=== PATIENT | male | born 1975 | race American Indian/Alaskan Native ===

== ENCOUNTER 2021-10-23 13:20 | Emergency (ER) | payer SELFPAY ==
[2021-10-23 13:25] VITALS: BP 149/95
--- NOTE | 2021-10-23 15:06 | Emergency Department Report ---
Minor Respiratory - HPI Chief Complaint: Headache Stated Complaint: COVID SYMPTOMS Duration: 3 Days Pain Location: Facial, Throat, Nose Severity: moderate Minor Respiratory: Yes Sore Throat (denies any sore throat at present ), Yes Able to Tolerate Fluids, Yes Cough (municex taking last night with relief ), Yes Sick Contacts, Yes Chest Pain, Yes Fever (Tylenol taken last night fever 99.9 ), No Rhinorrhea, No Hemoptysis, No Shortness of Breath Other History: 46-year-old male complaint of headache ,body ache, sore throat ,headache since Saturday. Patient is Covid vaccinated with Moderma x 2 shot. Patient states taking Mucinex and Tylenol last night with relief for fever and cough. Patient is here today in the ER for a Covid and flu test. Patient states that symptom has improved and is concerned about returning to work. ED Review of Systems ROS: Stated complaint: COVID SYMPTOMS Other details as noted in HPI Comment: All other systems reviewed and negative Constitutional: fever ENT: throat pain, congestion Respiratory: cough. denies: shortness of breath, SOB at rest Cardiovascular: denies: chest pain, palpitations Endocrine: no symptoms reported Minor Respiratory Exam - Exam General: Vital signs noted. No distress. Alert and acting appropriately. HEENT: Yes Pharyngeal Erythema, No Pharyngeal Exudates, No Moist Mucous Membranes, No Rhinorrhea, No Conjuctival Injection, No Frontal Tenderness, No Maxillary Tenderness Ear: Neither TM Bulge, Neither TM Erythema, Neither EAC Pain, Neither EAC Discharge Neck: No Adenopathy, No Supple Lungs: No Good Air Exchange, No Wheezes, No Ronchi, No Stridor, No Cough, No Labored Respirations, No Retractions, No Use of Accessory Muscles, No Other Abnormal Lung Sounds Heart: No Regular, No Murmur Abdomen: Yes Normal Bowel Sounds, No Tenderness, No Peritoneal Signs Skin: No Rash Neurologic: Alert and oriented, no deficits. Musculoskeletal: Unremarkable. ED Course Vital Signs 10/23/21 13:24 Temperature 98.3 F Pulse Rate 91 H Respiratory 16 Rate Blood Pressure 149/95 O2 Sat by Pulse 100 Oximetry ED Medical Decision Making - Medical Decision Making 46-year-old male complaint of headache ,body ache, sore throat ,headache since Saturday. Patient is Covid vaccinated with Moderma x 2 shot. Patient states taking Mucinex and Tylenol last night with relief for fever and cough. Patient is here today in the ER for a Covid and flu test. Patient states that symptom has improved and is concerned about returning to work. Informed patient to follow-up at a Covid site to get testing done. Also may follow-up with PCP to have flu test. Person patient is alert and oriented. No acute distress noted Critical care attestation.: If time is entered above; I have spent that time in minutes in the direct care of this critically ill patient, excluding procedure time. ED Disposition Clinical Impression: Suspected 2019 novel coronavirus infection Disposition: HOME / SELF CARE / HOMELESS Is pt being admited?: No Does the pt Need Aspirin: No Condition: Stable Instructions: COVID-19 Frequently Asked Questions, Influenza, Adult, [id number], COVID-19: How to Protect Yourself and Others - [facility] [place] Additional Instructions: Your symptoms appear most consistent with a nonspecific viral syndrome. However, given this current pandemic, COVID-19 is in the differential of possibilities. Despite your previous negative COVID-19 test, I do recommend repeat outpatient Covid 19 testing. In the meantime, isolate/quarantine yourself and stay away from anyone who is elderly, immunocompromised or chronically ill. You can use ibuprofen every 6-8 hours and Tylenol every 4-8 hours, using the dosing on the back of the bottle, as needed for any fever or body aches. Return to the emergency department with any worsening of your symptoms, development of chest pain or shortness of breath, or with any acute distress. Time of Disposition: 15:16
== END 2021-10-23 15:49 | disposition home or self-care (01) ==
LOC: ED 13:20
DX: Z20.822 Contact with and (suspected) exposure to COVID-19 (principal)
CPT/HCPCS: 99282